=== PATIENT | male | born 1975 | race African-American/Black ===

== ENCOUNTER 2017-05-03 18:44 | Emergency (ER) | payer BC ==
[2017-05-03] MEDS ORDERED: Albuterol Sulfate 2.5 mg/0.5 ml Neb ONE ×2 (19:08→19:53)
[2017-05-03] MEDS ORDERED: Sodium Chloride For Inhalation 0.9% 3 ML NEB ONE (19:08)
[2017-05-03] MEDS ORDERED: Ibuprofen 800 MG TAB ONE (19:12)
--- NOTE | 2017-05-03 20:45 | RAD ---
PA AND LATERAL CHEST: Indication: Chest congestion and fever. Comparison: 06-10-10 FINDINGS: No airspace consolidation, pleural effusion, or pneumothorax is evident. Cardiomediastinal silhouette is within normal limits. No acute osseous abnormality is seen. IMPRESSION: No acute cardiopulmonary abnormality. POS: [facility]
== END 2017-05-03 20:17 | disposition home or self-care (01) ==
LOC: SCSER 18:44
DX: J11.1 Influenza due to unidentified influenza virus with other respiratory manifestations (principal)
CPT/HCPCS: 71046; 87804; J7611

== ENCOUNTER 2020-02-23 06:56 | Emergency (ER) | payer BC ==
[2020-02-23] MEDS ORDERED: Morphine 4 MG/ML VIAL ONE (07:26)
[2020-02-23 07:48] LABS: #Eosinphils 0.1 thou/uL (0.0-0.7); #Lymphocytes 1.6 thou/uL (1.20-3.40); #Monocytes 0.3 thou/uL (0.11-0.59); #Neutrophils 2.1 thou/uL (1.40-6.50); %Basophils 0.5 % (0.0-1.0); %Eosinophils 1.8 % (0.0-10.0); %Lymphocytes 39.1 % (21.0-51.0); %Monocytes 7.9 % (0.0-10.0); %Neutrophils 50.7 % (42.0-75.0); Hemoglobin 14.9 g/dL (14.0-18.0); Mean Corpuscular HGB CONC 33.1 g/dL (32.0-36.0); Mean Corpuscular Hemoglobin 31.3 pg (27.0-31.0); Mean Corpuscular Volume 94.5 fL (78.0-98.0); Mean Platelet Volume 9.7 fL (7.4-10.4); Platelet Count 195 thou/uL (130-400); RBC Distribution Width 11.9 % (11.5-14.5); Red Blood Cell (RBC) Count 4.76 mill/uL (4.70-6.10); White Blood Cell (WBC) Count 4.1 thou/uL (4.8-10.8)
--- NOTE | 2020-02-23 08:00 | CT ---
CT abdomen and pelvis noncontrast HISTORY: Abdominal pain. FINDINGS: The lung bases are clear. There is mild distention of the right renal collecting system and ureter to the level of a calcification at the distal right ureter that is no larger than 0.2 cm. Within a mildly distended calyx at the inferior pole of the right kidney is a lobular calcification t hat measures up to 0.8 cm. Within a nondilated calyx at the midportion left kidney is a 0.8 cm calcification. At the inferior margin of the right liver lobe is a 0.6 cm indeterminate low-density well-circumscrib ed lesion, likely a cyst. An even smaller indeterminate lesion is noted within the posterior segment right liver lobe midportion. No evidence of bowel obstruction or inflammation. There are degenerative changes of the lower lumbar spine, including possible central canal stenoses a t the L4-5 and L5-S1 levels and probable significant foraminal stenoses at the lumbosacral junction. IMPRESSION : Partial obstruction at a tiny nonobstructing distal right ureteral calculus. Additional nonobstructin g 0.8 cm bilateral renal calculi. Degenerative changes lower lumbar spine including impressive stenoses at each L5-S1 neural foramen. C linical correlation regarding each L5 dermatome is required. Incidental-type findings as detailed above.
[2020-02-23 08:09] LABS: ALT (SGPT) 55 U/L (8-55); AST (SGOT) 25 U/L (5-34); Albumin 4.3 g/dL (3.5-5.0); Alkaline Phosphatase 113 U/L (40-110); Anion Gap 16 mmol/L (10-20); BUN (Urea Nitrogen) 8 mg/dL (8.9-20.6); Bilirubin, Total 0.3 mg/dL (0.2-1.2); Calc. Creatinine Clearance 0 mL/min (70-130); Calcium 9.4 mg/dL (7.8-10.44); Carbon Dioxide 22 mmol/L (22-29); Chloride 105 mmol/L (98-107); Estimated GFR-MDRD 74; Globulin 3.2 g/dL (2.4-3.5); Glucose 142 mg/dL (70-105); Lipase 13 U/L (8-78); Potassium 3.7 mmol/L (3.5-5.1); Protein, Total 7.5 g/dL (6.0-8.3); Sodium 139 mmol/L (136-145)
[2020-02-23 09:24] LABS: Bacteria/HPF None Seen HPF (None Seen); Bilirubin Negative (Negative); Blood, Urine 2+ (Negative); Clarity Clear (Clear); Glucose, Urine (Dipstick) Normal (Negative); Ketone, Urine Negative (Negative); Leukocyte Negative Leu/uL (Negative); Nitrite Negative (Negative); Protein, Urine (Dipstick) Negative (Neg-Trace); Squamous Epithelial None Seen HPF (0-3); Urobilinogen Normal mg/dL (Less than 2); WBC/HPF 0-3 HPF (0-3)
[2020-02-23 09:26] LABS: Specific Gravity, Urine 1.055 (1.002-1.036)
[2020-02-23] MEDS ORDERED: Iopamidol-370 76% 500 ML 1 ML ONE (15:22)
== END 2020-02-23 11:01 | disposition home or self-care (01) ==
LOC: ERS 06:56
DX: N20.2 Calculus of kidney with calculus of ureter (principal); J45.909 Unspecified asthma, uncomplicated
CPT/HCPCS: 36415; 74177; 80053; 81003; 81015; 83605; 83690; 85025; 96374; J2270; Q9967